=== PATIENT | female | born 1950 | race Caucasian/White ===

== ENCOUNTER → 2016-07-22 | Outpatient (CLI) | payer MEDICARE, OTHER ==
[2016-07-22 12:12] LABS: HEMOGLOBIN 12.9 gm/dl (12.3-15.3); RED BLOOD COUNT 4.38 M/UL (4.00-5.10); WHITE BLOOD COUNT 8.1 K/UL (4.5-11.0)
[2016-07-22 12:37] LABS: BUN/CREATININE RATIO 22 (0-10)
== END ==
LOC: OPSV 10:58
PROVIDERS: Emergency Medicine
DX: J11.1 Influenza due to unidentified influenza virus with other respiratory manifestations (principal); L08.89 Other specified local infections of the skin and subcutaneous tissue; E78.2 Mixed hyperlipidemia; G47.09 Other insomnia; I48.2 Chronic atrial fibrillation
CPT/HCPCS: 36415; 80053; 85027; G0463

== ENCOUNTER → 2020-08-27 | Outpatient (CLI) | payer MEDICARE, OTHER ==
[~2020-08-27] MED LIST: FLONASE 0.05% N16 GM; QVAR8.7 G1 INH; SOTALOL120 MG PO; SOTALOL80 MG PO; VITAMIN D PO; XARELTO20 MG PO; ZANTAC 150 MG150 MG PO; ZOCOR20 MG PO; ZOLOFT25 MG PO
== END ==
LOC: MAMO 09:25 → EXRD 09:25 → MAMO 13:30
DX: Z12.31 Encounter for screening mammogram for malignant neoplasm of breast (principal); M81.0 Age-related osteoporosis without current pathological fracture; M85.89 Other specified disorders of bone density and structure, multiple sites
CPT/HCPCS: 77063; 77067; 77080

== ENCOUNTER 2021-01-23 12:52 | Observation (INO) | payer MEDICARE, OTHER ==
[~2021-01-23] VITALS: Ht 157.5 cm; Wt 53.1 kg
[~2021-01-23 12:52] MED LIST changes: -VITAMIN D PO; +VITAMIN D325 MC6 PO
[2021-01-23 14:01] LABS: HEMOGLOBIN 12.6 gm/dl (12.3-15.3); RED BLOOD COUNT 4.19 M/UL (4.00-5.10); WHITE BLOOD COUNT 7.2 K/UL (4.5-11.0)
[2021-01-23 14:30] LABS: BUN/CREATININE RATIO 27 (0-10)
[2021-01-23] MEDS ORDERED: LISINOPRIL5 MG PO (17:02)
[2021-01-23] MEDS ORDERED: AZITHROMYCIN250 MG PO (17:04)
[2021-01-24 02:17] LABS: HEMOGLOBIN 11.8 gm/dl (12.3-15.3); RED BLOOD COUNT 3.98 M/UL (4.00-5.10); WHITE BLOOD COUNT 6.7 K/UL (4.5-11.0)
[2021-01-24 03:35] LABS: BUN/CREATININE RATIO 22 (0-10)
[2021-01-24] MEDS ORDERED: BETAPACE 80MG T80 MG PO ×2 (14:46)
== END 2021-01-24 17:00 | disposition home or self-care (01) ==
LOC: ER1 12:52 → M/S 15:07 → CDU 15:07 → M/S 16:30
PROVIDERS: Physician Assistant; Physician Assistant Medical; ADMIT Internal Medicine
DX: R07.9 Chest pain, unspecified (principal); I48.0 Paroxysmal atrial fibrillation; R00.1 Bradycardia, unspecified; I11.9 Hypertensive heart disease without heart failure; I45.10 Unspecified right bundle-branch block; I08.3 Combined rheumatic disorders of mitral, aortic and tricuspid valves; I27.20 Pulmonary hypertension, unspecified; Z79.01 Long term (current) use of anticoagulants; Z79.899 Other long term (current) drug therapy; Z20.822 Contact with and (suspected) exposure to COVID-19; Z86.16 Personal history of COVID-19
CPT/HCPCS: ECHO; 36415; 71045; 78452; 80048; 80053; 80061; 82550; 82553; 83735; 83874; 83880; 84439; 84443; 84484; 85025; 85027; 93005; 93017; 93270; 93306; 99285; A9502; G0378; J2785; U0002

== ENCOUNTER → 2021-05-28 | Outpatient (CLI) | payer MEDICARE, OTHER ==
[~2021-05-28] MED LIST changes: +AZITHROMYCIN250 MG PO; +BETAPACE 80MG T80 MG PO; +LISINOPRIL5 MG PO
== END ==
LOC: RAD 14:04
DX: M51.16 Intervertebral disc disorders with radiculopathy, lumbar region (principal)
CPT/HCPCS: 72110

== ENCOUNTER → 2021-07-14 | Outpatient (CLI) | payer MEDICARE, OTHER | LOC: KOH-I 08:13 | DX: J98.01 Acute bronchospasm (principal); J84.10 Pulmonary fibrosis, unspecified; Z88.0 Allergy status to penicillin; Z88.5 Allergy status to narcotic agent; R91.8 Other nonspecific abnormal finding of lung field | CPT/HCPCS: 71250 ==

== ENCOUNTER → 2021-07-30 | Outpatient (CLI) | payer MEDICARE, OTHER ==
[2021-08-01 20:13] LABS: QUANTIFERON MITOGEN VALUE >10.00 IU/mL (.); QUANTIFERON NIL VALUE 0.02 IU/mL (.); QUANTIFERON TB1 AG VALUE 0.02 IU/mL (.); QUANTIFERON TB2 AG VALUE 0.03 IU/mL (.); QUANTIFERON-TB GOLD PLUS Negative (Negative)
== END ==
LOC: LAB 09:51
PROVIDERS: Nurse Practitioner Family
DX: J06.9 Acute upper respiratory infection, unspecified (principal)
CPT/HCPCS: 36415; 85652; 86140; 87015; 87116; 87205

== ENCOUNTER → 2021-08-01 | Outpatient (CLI) | payer MEDICARE, OTHER | LOC: LBRF 13:56 | DX: J06.9 Acute upper respiratory infection, unspecified (principal) | CPT/HCPCS: 87070; 87205 ==

== ENCOUNTER → 2021-08-21 | Outpatient (CLI) | payer MEDICARE, OTHER | LOC: CT 08-13 14:00 | DX: J20.8 Acute bronchitis due to other specified organisms (principal); J84.10 Pulmonary fibrosis, unspecified; Z88.0 Allergy status to penicillin; Z88.5 Allergy status to narcotic agent; R91.8 Other nonspecific abnormal finding of lung field | CPT/HCPCS: 71250 ==

== ENCOUNTER → 2021-11-11 | Outpatient (CLI) | payer MEDICARE, OTHER | LOC: KOH-I 08:00 | DX: R10.816 Epigastric abdominal tenderness (principal); K80.20 Calculus of gallbladder without cholecystitis without obstruction | CPT/HCPCS: 76705 ==

== ENCOUNTER → 2021-11-21 | Outpatient (CLI) | payer MEDICARE, OTHER | LOC: KOH-I 11-14 10:30 | DX: R10.817 Generalized abdominal tenderness (principal); K29.00 Acute gastritis without bleeding; Z88.5 Allergy status to narcotic agent; Z88.0 Allergy status to penicillin; N20.0 Calculus of kidney; K57.30 Diverticulosis of large intestine without perforation or abscess without bleeding | CPT/HCPCS: 74176 ==

== ENCOUNTER 2021-12-03 11:07 | Emergency (ER) | payer MEDICARE, OTHER ==
[2021-12-03 14:13] LABS: HEMOGLOBIN 13.5 gm/dl (12.3-15.3); RED BLOOD COUNT 4.5 M/UL (4.00-5.10); WHITE BLOOD COUNT 6.7 K/UL (4.5-11.0)
[2021-12-03 14:42] LABS: BUN/CREATININE RATIO 29 (0-10)
[2021-12-03] MEDS ORDERED: SOTALOL80 MG PO (15:05)
== END 2021-12-03 16:00 | disposition home or self-care (01) ==
LOC: ER1 11:07
PROVIDERS: Emergency Medicine
DX: R00.1 Bradycardia, unspecified (principal); I10 Essential (primary) hypertension; I48.0 Paroxysmal atrial fibrillation
CPT/HCPCS: 71045; 80053; 82550; 82553; 84439; 84443; 84484; 85025; 93005; 93270; 99284

== ENCOUNTER → 2021-12-09 | Day surgery (SDC) | payer MEDICARE, OTHER ==
[~2021-12-09] MED LIST changes: +PROTONIX20 MG PO
== END | disposition home or self-care (01) ==
LOC: OR 07:36
DX: K29.60 Other gastritis without bleeding (principal); I10 Essential (primary) hypertension; K21.9 Gastro-esophageal reflux disease without esophagitis; I48.91 Unspecified atrial fibrillation; N20.0 Calculus of kidney; K57.30 Diverticulosis of large intestine without perforation or abscess without bleeding; D68.9 Coagulation defect, unspecified; E78.00 Pure hypercholesterolemia, unspecified; Z79.01 Long term (current) use of anticoagulants; Z79.899 Other long term (current) drug therapy; Z88.0 Allergy status to penicillin; Z88.5 Allergy status to narcotic agent
CPT/HCPCS: J2704; J7040

== ENCOUNTER → 2021-12-24 | Outpatient (CLI) | payer MEDICARE, OTHER | LOC: KOH-I 15:00 | DX: J20.8 Acute bronchitis due to other specified organisms (principal); J84.10 Pulmonary fibrosis, unspecified | CPT/HCPCS: 71250 ==